=== PATIENT | male | born 1990 | race Caucasian/White ===

== ENCOUNTER 2020-08-05 10:05 | Emergency (ER) | payer BC, SELFPAY ==
--- NOTE | 2020-08-05 10:27 | HMH.EDUTC ---
[facility] Disposition Clinical Impression: Low back pain Qualifiers: Chronicity: unspecified Back pain laterality: right Sciatica presence: with sciatica Sciatica laterality: sciatica of right side Qualified Code(s): M54.41 - Lumbago with sciatica, right side Radiculopathy Qualifiers: Spinal region: lumbar Qualified Code(s): M54.16 - Radiculopathy, lumbar region Disposition: Home, Self-Care Condition on Discharge: Good Instructions: Low Back Pain, DI for Low Back Pain, DI for Back Pain With Sciatica Additional Instructions: Go home and rest. No heavy lifting. No twisting. Take the oral medications as directed. The muscle relaxer (robaxin) will make you drowsy, so don't drive or operate heavy machinery after taking it. Don't start the oral steroids (medrol dose pack) until tomorrow, since you had the shots in here today. Follow up with your regular doctor. GO TO THE ER FOR ANY WORSENING SYMPTOMS OR CONCERN, ESPECIALLY BOWEL OR BLADDER ISSUES, SADDLE AREA NUMBNESS, FEVER, ETC Prescriptions: Ibuprofen [Ibuprofen 800mg Tablet] 800 mg PO Q8HP PRN #30 tab PRN Reason: Moderate Pain Transmission Status: Received by [employer] #[id number] Cyclobenzaprine HCl [Flexeril 10mg tablet] 10 mg PO BIDP PRN #30 tab PRN Reason: Muscle Spasm Transmission Status: Received by [employer] #[id number] predniSONE [Prednisone 20mg Tab] 20 mg PO BID 4 Days #8 tab Transmission Status: Received by [employer] #[id number] Referrals: PCP,No [Primary Care Provider] - Forms: Work/School Release Time of Disposition: 11:07 Medical Decision Making - Medical Records Medical records reviewed: No: I reviewed the patient's medical records. - [place] Inquiry Pt receiving controlled substance: No Vital Signs: 08/05/20 10:28 08/05/20 11:07 Temperature 98.0 F 98.0 F Temperature Source Oral Oral Pulse Rate 86 Respiratory Rate 18 18 Blood Pressure 144/84 H 02 Sat by Pulse Oximetry 98 Oxygen Delivery Method Room Air Room Air Orders (Tests/Meds): ED MEDICATIONS Discontinued Medications Generic Name Dose Route Start Last Admin Trade Name Freq PRN Reason Stop Dose Admin Ketorolac Tromethamine 60 mg 08/05/20 10:38 08/05/20 10:51 Ketorolac 60mg/2ml Vial IM 08/05/20 10:39 60 mg ONCE ONE Administration Methylprednisolone Sodium Succinate 125 mg 08/05/20 10:38 08/05/20 10:51 Methylprednisolone Sod Succ 125mg Vial IM 08/05/20 10:39 125 mg ONCE ONE Administration [facility] HPI - General Stated complaint: back pain, no accident Time Seen by Provider: 08/05/20 10:35 - History of Present Illness Provider Complaint: He states that he has had low back pain since yesterday. He denies any known injury. He has a history of low back pain flare ups. His son recently broken his arm and he had to carry his son in and out of the hospital. He thinks that this could have strained his back. - Related Data Previous Rx's Medication Instructions Recorded Cyclobenzaprine HCl [Flexeril 10mg 10 mg PO BIDP PRN #30 tab 08/05/20 tablet] Ibuprofen [Ibuprofen 800mg 800 mg PO Q8HP PRN #30 tab 08/05/20 Tablet] predniSONE [Prednisone 20mg 20 mg PO BID 4 Days #8 tab 08/05/20 Tab] Allergies Allergy/AdvReac Type Severity Reaction Status Date / Time No Known Allergies Allergy Verified 08/05/20 10:39 [facility] History - Hepatitis A Screen Attestation statement:: This patient has been screened for Hepatitis A risk factors. I have reviewed the patient's past medical history: Yes ROS Obtained: Yes All systems reviewed & no additional complaints - Constitutional Constitutional: Denies chills, Denies fever(s) - Eyes Eyes: Denies eye discharge - ENT Ears, Nose, Mouth, and Throat: Denies dizziness, Denies otalgia, Denies sore throat - Cardiovascular Cardiovascular: Denies chest pain - Respiratory Respiratory: Denies chest congestion, Denies cough - Gas
[2020-08-05 10:28] VITALS: RESP 18; TEMP 36.7; O2SAT 98; BMI 26.3
[2020-08-05 11:07] VITALS: BP 144/84; PULSE 86; RESP 18; TEMP 36.7; O2SAT 98
== END 2020-08-05 11:09 | disposition home or self-care (01) ==
PROVIDERS: Emergency Provider Nurse Practitioner Family
DX: M54.41 Lumbago with sciatica, right side (principal); M54.16 Radiculopathy, lumbar region
CPT/HCPCS: 96372; 99202; G0463

== ENCOUNTER 2023-12-16 01:01 | Emergency (ER) | payer BC, SELFPAY ==
--- NOTE | 2023-12-16 01:00 | ECG_ITS ---
APPROVED REPORT Exam: Resting ECG HR:71 bpm ECG Measurements Heart Rate 71 AXES AL 158 P 58 QRSd 104 QRS 69 QT 386 T 55 QTc 409 Conclusion SINUS RHYTHM NORMAL ECG Electronically signed by : KATHY PEARSON, 12/16/2023 06:23:19
[2023-12-16 01:01] VITALS: BP 178/148; PULSE 76; RESP 20; TEMP 36.7; O2SAT 97; BMI 29.0
--- NOTE | 2023-12-16 01:27 | XR_ITS ---
PROCEDURE INFORMATION: Exam: XR Chest Exam date and time: 12/16/2023 1:32 AM Age: 33 years old Clinical indication: Pain; Chest pressure; Additional info: Chest pain TECHNIQUE: Imaging protocol: Radiologic exam of the chest. Views: 2 views. COMPARISON: No relevant prior studies available. FINDINGS: Lungs: No evidence of acute pulmonary disease or infiltrates Pleural spaces: No large effusion or pneumothorax. Heart/Mediastinum: No evidence of mediastinal widening or cardiac silhouette enlargement; the mediastinum and heart appear within normal limits for contour and size. Diaphragm: There is elevation of the right hemidiaphragm. Bones/joints: No evidence of acute osseous abnormalities within the visualized portions of the thoracic spine and ribs. Osseous structures appear appropriate for patient age. IMPRESSION: No dense parenchymal consolidation, pleural effusion, or pneumothorax.
[2023-12-16 01:38] LABS: Anion Gap 9.5 mEq/L (5-15); Basophils # 0.2 K/mm3 (0-0.2); Basophils % 1.9 % (0.1-2.0); Blood Urea Nitrogen 15 mg/dl (9-20); Calcium 9.2 mg/dl (8.4-10.2); Carbon Dioxide 30 mmol/L (22.0-30.0); Chloride 106 mmol/L (98-107); Creatinine Clearance Estimated 212 mL/min (50-200); Eosinophils # 0.2 K/mm3 (0.0-0.4); Eosinophils % 2.7 % (0.1-12.0); Estimated Glomerular Filt Rate 130 ml/min (>60); GFR (African American) 157 ML/MIN (>60); Glucose 135 mg/dl (74-100); Hematocrit 47.8 % (42.0-52.0); Hemoglobin 16.2 g/dL (14.1-18.0); Lymphocytes # 3.5 K/mm3 (0.7-4.5); Lymphocytes % 39.2 % (10-50); Mean Corpuscular HGB Conc 33.9 g/dL (31.8-35.4); Mean Corpuscular Hemoglobin 32.5 pg (27.0-31.2); Mean Corpuscular Volume 96.1 fl (80-94); Monocytes # 0.6 K/mm3 (0.1-1.0); Monocytes % 6.2 % (1.7-9.3); Neutrophils # 4.4 K/mm3 (1.8-7.8); Platelet Count 174 K/mm3 (142-424); Potassium 3.5 mmoL/L (3.5-5.1); Red Blood Count 4.98 M/mm3 (4.60-6.20); Red Cell Distribution Width 12.7 % (11.5-17.5); Sodium 142 mmol/L (136-145); White Blood Count 8.8 K/mm3 (4.8-10.8)
[2023-12-16 01:51] LABS: Troponin I < 0.01 ng/ml (0.00-0.034)
--- NOTE | 2023-12-16 02:03 | HMH.EDCP ---
Discharge Plan Disposition Patient Disposition: Home, Self-Care Condition: Good Prescriptions Prescriptions: No Action prednisone 20 MG tablet 20 mg PO BID 4 Days Qty: 8 0RF ibuprofen 800 MG tablet 800 mg PO Q8HP PRN (Reason: Moderate Pain) Qty: 30 0RF cyclobenzaprine 10 MG tablet 10 mg PO BIDP PRN (Reason: Muscle Spasm) Qty: 30 0RF Referrals Follow up/Referrals: Provider,Conrado, [Primary Care Provider] - See instructions Eddie Love MD [Staff Physician] - See instructions (needs PCP, strong family history CAD) Michael Carcamo MD [Staff Physician] - See instructions (Chest pain, strong family hx) Activity Restrictions/Add. Instructions Additional Instructions/Restrictions: You were evaluated in the ER and are appropriate for discharge at this time. Follow-up with cardiology. Call them first thing in the morning, they often have appointment availability at 1 PM. Also follow-up with a primary care physician, you have been referred to Dr. Love for this purpose. Return to the ER with new, worsening, or otherwise concerning symptoms. Clinical Impressions Clinical Impression: Chest pain Print Language Print Language: Algerian Discharge ED Provider: Ronald Souza General Chief Complaint: Chest Pain Stated Complaint: CP Time Seen by Provider: 12/16/23 01:29 Mode of Arrival: Ambulatory Source of Information: Patient Limitations: No Limitations Description of Symptoms (Recalled from ER Triage Doc. by RN): Pt. presented to the ED with c/o mid sternal chest pain. Chest pain started around 2230 last night. Pt. staes the pain radiates down left arm. feels like a weight on his chest. also c/o nausea. states his dad had a stemi at a young age. History of Present Illness HPI narrative: 33-year-old male with a strong family history of cardiac disease presents to the ER with midsternal chest pain that radiated to the left arm. Patient reports his pain started around 1030 last night. He also had symptoms of nausea. Patient denies any difficulty breathing, no dizziness or headache, no vision changes. He states when his symptoms initially started it was just chest pressure but then it migrated to causing left arm pain as well as the associated nausea so he woke up his who works at the hospital and gave him 324 mg of aspirin prior to coming to the ER. Patient states he is now asymptomatic and feels completely normal. He reports his dad had an CO in his 40s. Aside from psoriasis patient has no known medical conditions. He and his report he does not currently have a primary care doctor and they would like to be referred to 1. Related Data Previous Rx's ?Medication ?Instructions ?Recorded cyclobenzaprine 10 mg tablet 10 mg PO BIDP PRN Muscle Spasm #30 08/05/20 tabs ibuprofen 800 mg tablet 800 mg PO Q8HP PRN Moderate Pain 08/05/20 #30 tabs prednisone 20 mg tablet 20 mg PO BID 4 days #8 tabs 08/05/20 Allergies Allergy/AdvReac Type Severity Reaction Status Date / Time No Known Allergies Allergy Verified 08/05/20 10:39 [facility] Disclaimer: The information contained in this section may have been updated after the patient was seen, as this information can be updated by other users. Social History Smoking Status: Never smoker alcohol intake: current current occupational status: employed Travel in the last 8 weeks: None ROS Obtained: Yes All systems reviewed & no additional complaints except as documented Positive ROS per HPI Physical Exam General General appearance: alert and in no apparent distress Head Head exam: atraumatic and normocephalic Eye Eye exam: Present PERRL and EOMI ENT ENT exam: Present mucous membranes moist Neck Neck exam: Present normal inspection and full ROM Chest Chest inspection: Present symmetric chest wall rise; Absent tenderness Respiratory Respiratory exam: Present normal lung sounds bilaterally; Absent respiratory distress, [place]
[2023-12-16 04:18] LABS: Troponin I < 0.01 ng/ml (0.00-0.034)
[2023-12-16 04:23] VITALS: BP 135/89; PULSE 64; RESP 20; TEMP 37.1; O2SAT 96
== END 2023-12-16 04:24 | disposition home or self-care (01) ==
PROVIDERS: Emergency Provider Emergency Medicine
DX: R07.9 Chest pain, unspecified (principal); R11.0 Nausea; Z82.49 Family history of ischemic heart disease and other diseases of the circulatory system
CPT/HCPCS: 71046; 80048; 84484; 85025; 93005; 99284